=== PATIENT | female | born 1970 | race American Indian/Alaskan Native ===

== ENCOUNTER 2018-06-22 07:11 | Day surgery (SDC) | payer MEDICARE ==
[2018-06-22] MEDS ORDERED: ANCEF/STERILE WATER 2 GM/20 ML 2 GM/20 ML SYRINGE IV NR (08:00)
[2018-06-22] MEDS ORDERED: XYLOCAINE 2% INFILTRATI ONE (08:15)
[2018-06-22] MEDS ORDERED: HEPARIN/NS 5000 UNIT/500ML(CATH LAB) 1,000 ML IR ONE (08:15)
[2018-06-22] MEDS ORDERED: VERSED ONE (08:16)
[2018-06-22] MEDS ORDERED: HEPARIN 10,000 UNITS/10 ML ONE (08:16)
[2018-06-22] MEDS ORDERED: NACL 0.9% 500 ML 500 ML ONE (09:45)
[2018-06-22] MEDS: SUBLIMAZE ONE ×2 (10:00→10:02)
[2018-06-22] MEDS: VERSED ONE ×2 (10:02→10:12)
[2018-06-22] MEDS ORDERED: SUBLIMAZE ONE (10:11)
--- NOTE | 2018-06-22 11:34 | Short Stay Summary ---
Short Stay Documentation Date of service: 06/22/18 Narrative H&P: 47 year old female with SVC syndrome who presents for central vein reconstruction. - History Principal diagnosis: AVF malfunction, SVC syndrome H&P: obtained from office - Allergies and Medications Current Medications: Allergies No Known Allergies Allergy (Unverified 06/22/18 07:12) Home Medications Medication Instructions Recorded Confirmed Last Taken Type Aspirin [Lo-Dose Aspirin EC] 81 mg PO DAILY 06/22/18 06/22/18 06/21/18 History Atenolol 50 mg PO DAILY 06/22/18 06/22/18 06/21/18 History B Complex 11/Folic/C/Biot/Zinc 1 each PO DAILY 06/22/18 06/22/18 06/21/18 History [Dialyvite with Zinc Tablet] Calcium Acetate 4 cap PO TID 06/22/18 06/22/18 06/21/18 History Active Medications Cefazolin Sodium (Ancef/Sterile Water 2 Gm/20 Ml) 2 gm in 20 mls @ 80 mls/hr IV PREOP NR; Protocol Stop: 06/22/18 15:00 Last Admin: 06/22/18 09:50 Dose: 20 mls Documented by: - Physical exam General appearance: no acute distress HEENT: Other (swelling head and neck) Lungs: Normal air movement Breasts: swelling (left breast) Gastrointestinal: normal - Brief post op/procedure progress note Date of procedure: 06/22/18 Pre-op diagnosis: ESRD with SVC syndrome and AVF malfunction Post-op diagnosis: same Procedure: 1. Ultrasound guided access of the left basilic vein towards the venous outflow 2. Fistulogram 3. Selection of the left innominate vein with attempted recannalization 4. Ultrasound guided access of the right common femoral vein 5. SVC selection with venography 6. Azogos selection with venography Anesthesia: local (w/ conscious sedation) Surgeon: ALAN DURAN Estimated blood loss: minimal Condition: stable - Hospital course Hospital course: Tolerated procedure without issue. Needs fistula ultrasound to assess flow rates for possible banding. - Disposition Condition at discharge: Stable Disposition: - TO HOME OR SELFCARE - Discharge Diagnoses (1) Dialysis AV fistula malfunction Status: Acute (2) SVC syndrome Status: Acute Short Stay Discharge Plan Activity: advance as tolerated Weight Bearing Status: Weight Bear as Tolerated Diet: renal Wound: keep clean and dry, other (remove pressure dressing later tonight or tomorrow morning) Follow up with: RODNEY CORREA MD [Other] - 7 Days
[2018-06-22 14:05] VITALS: BP 108/67
--- NOTE | 2018-06-22 14:14 | Vascular Lab Report ---
FINAL REPORT EXAM: VL HEMODIALYSIS ACCESS HISTORY: check flow rate of left AVF TECHNIQUE: Ultrasound of arterial venous fistula performed a PRIORS: None. FINDINGS: Left upper extremity arterial venous fistula is patent. LEFT UPPER EXTREMITY/FISTULA FLOW RATES Left brachial artery-147 centimeters/second AVF inflow-390 centimeters/second Distal biceps-169 centimeters/second Mid biceps-80 centimeters/second Proximal biceps-63 centimeters/second AVF outflow-52 centimeters/second Left axillary vein-30 centimeters/second. Volume flow 421 mL per minute IMPRESSION: Patent left upper extremity AVF. Low volume flow of 421 millimeters/minute.
--- NOTE | 2018-07-03 23:04 | Operative Report ---
Operative Report Operative Report: EXAM: 1. Ultrasound guided access of the left basilic vein towards the venous outflow 2. Fistulogram 3. Selection of the left subclavian vein with attempted recannalization 4. Ultrasound guided access of the right common femoral vein 5. SVC selection with venography 6. Azogos selection with venography DATE: 06/22/18 INDICATION: SVC SYNDROME WITH HEAD AND NECK SWELLING. There is been 2 attempts by outside physicians to cross the left innominate vein which have been unsuccessful. EBL: MINIMAL CONTRAST: PLEASE SEE GENERAL SALES MANAGER REPORT FOR FULL DETAILS ANESTHESIA: CONTINUOUS CARDIOPULMONARY MONITORING WAS PERFORMED WITH MODERATE SEDATION ; PLEASE SEE GENERAL SALES MANAGER REPORT FOR FULL DETAILS TECHNIQUE: The risks, benefits, and alternatives were discussed with the patient and her mother; Written informed consent was obtained. Ultrasound is used to evaluate the left arm AV fistula. This was patent. Under direct ultrasound guidance, the left arm AV fistula was accessed with a 21-gauge micropuncture needle. 0.018 inch wire was passed into the fistula. Needle was exchanged for transitional dilator. Wire was exchanged for 0.035 inch wire. Transitional dilator was exchanged for a 5 Japanese sheath. Digital subtraction angiography demonstrated a large patulous basilic fistula without flow into the axillary vein. Left subclavian vein was patent. The left innominate vein, right innominate vein, and above the azygous SVC appeared occluded. There is no clear reconstitution of the SVC. Since I could not see reconstitution, I decidesd to get femoral access. The right common femoral vein was then evaluated with ultrasound. This was patent. Under direct ultrasound guidance, the right common femoral vein was accessed with a 21-gauge micropuncture needle. 0.018 inch wire was passed into the IVC. Needle was exchanged for transitional dilator. Wire was exchanged for 0.035 inch wire. Transitional dilator was exchanged for 5 Japanese sheath. Over a 0.035 inch wire, 6 Japanese [place] destination was passed over the wire and into the SVC. Digital subtraction angiography was performed confirming position within the SVC. I attempted to select the innominate veins which was unsuccessful. Neither innominate vein was present. I was only able to cannulate the azygous vein which was large and massive. Digital subtraction angiography demonstrated that this vein was incredibly patulous suggesting chronicity of this issue. I switched to the fistula. Sheath was then exchanged for a 6 Japanese 25 cm sheath which was passed into the left subclavian vein. Multiple attempts were made to recanalize the left innominate vein using multiple wires and catheters. I then attempted from both sides to recanalize the left innominate vein but was ultimately unsuccessful. I then performed reflux angiography of the left brachial basilic AV fistula demonstrating some 50% narrowings in the left peripheral portion of the fistula which is likely secondary to tortuosity. The anastomosis was patent. The artery (brachial artery) proximal distal to the anastomosis was patent. At this point, the fistula site was closed with 3-0 Vicryl. The right common femoral vein site was closed with manual compression. Patient tolerated the procedure well. No immediate postprocedural complication. Findings: Please see procedure note above. Impression: 1. Successful fistulogram with ultrasound-guided access of the left brachial basilic AV fistula and selection of the left subclavian vein. 2. Successful ultrasound-guided access of the right common femoral vein with selection of the SVC and azygous vein with angiography. 3. 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
== END 2018-06-22 15:51 | disposition home or self-care (01) ==
LOC: CATHLABREC 07:11
PROVIDERS: ATTEND Radiology Diagnostic Radiology
DX: T82.590A Other mechanical complication of surgically created arteriovenous fistula, initial encounter (principal); N18.6 End stage renal disease; Y83.2 Surgical operation with anastomosis, bypass or graft as the cause of abnormal reaction of the patient, or of later complication, without mention of misadventure at the time of the procedure
CPT/HCPCS: 36415; 36901; 84132; 93990; C1751; C1769; C1887; C1894; J0690; J1644; J2250; J3010; J7040; Q9967